=== PATIENT | male | born 1995 | race Caucasian/White ===

== ENCOUNTER 2019-08-01 18:15 | Emergency (ER) | payer OTHER ==
[~2019-08-01] VITALS: Ht 167.7 cm; Wt 90.0 kg
[2019-08-01] MEDS ORDERED: ACETAMINOPHEN 500 MG TAB (TYLENOL) PO ONE (18:45)
--- NOTE | 2019-08-01 19:00 | ED Lower Extremity ---
General Chief Complaint: Lower Extremity Stated Complaint: FEVER,L LEG PAIN Nursing Triage Note: Pt amb to room #9 with c/o L calf discomfort et subjective fever. Pt reports on this day he experienced discomfort to L calf for x1hr. Pt currently denies pain to L calf with no redness, swelling, or heat noted. Pt denies cough or congestion. Pt reports subjective fever stating, "I just have felt cold all day." A&OX4. Nursing Sepsis Screen: No Definite Risk Source: patient Exam Limitations: no limitations History of Present Illness Date Seen by Provider: Aug 01, 2019 Time Seen by Provider: 18:56 Initial Comments To ER with reports of rather sudden onset of fever up to 101 this afternoon about 2-3 hours ago. His only symptom is a mild headache. 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 He denies a cough, he denies shortness of breath, denies diarrhea denies dysuria or any pains. He does report that he's had intermittent achiness to the posterior left that lasts about 15 minutes and comes intermittently, usually goes away when he gets up and walks around. This has been present for about 3 weeks and describes it as a tingly sensation. It starts behind the knee and extends distally down to the foot. No known injury no swelling in his present for several weeks, again, intermittently. Onset: just prior to arrival Severity: moderate Pain/Injury Location: left leg Method of Injury: unknown Allergies and Home Medications Allergies Coded Allergies: No Known Drug Allergies (Unverified , 08/01/19) Patient Home Medication List Home Medication List Reviewed: Yes Review of Systems Constitutional: see HPI; No chills; fever; No malaise, No weakness EENTM: see HPI Respiratory: no symptoms reported; No cough, No short of breath Cardiovascular: no symptoms reported Gastrointestinal: No abdominal pain, No diarrhea, No nausea, No vomiting Genitourinary: no symptoms reported; No dysuria Musculoskeletal: no symptoms reported Skin: no symptoms reported Psychiatric/Neurological: No Symptoms Reported Past Ilbwkeo-Fxilhl-Pqolmo Hx Patient Social History Recent Foreign Travel: No Contact w/Someone Who Travel: No Recent Infectious Disease Expo: No Physical Exam Vital Signs Vital Signs - First Documented 08/01/19 18:32 Temp 38.4 Pulse 114 Resp 17 B/P (MAP) 145/86 (105) Pulse Ox 97 O2 Delivery Room Air Capillary Refill : Less Than 3 Seconds Height, Weight, BMI Height: '" Weight: lbs. oz. kg; 32.00 BMI Method: General Appearance: WD/WN, no apparent distress HEENT: PERRL/EOMI, normal ENT inspection, TMs normal, pharyngeal erythema Neck: non-tender, full range of motion Respiratory: no respiratory distress, no accessory muscle use Hips: bilateral hip non-tender, bilateral hip normal inspection, bilateral hip normal range of motion Legs: bilateral leg non-tender, bilateral leg normal inspection, bilateral leg normal range of motion, bilateral leg other (lites are normal in appearance with strong dorsalis pedis pulses no redness no swelling no ecchymosis or evidence of injury) Knees: bilateral knee non-tender, bilateral knee normal inspection, bilateral knee normal range of motion Feet: bilateral foot non-tender, bilateral foot normal inspection, bilateral foot normal range of motion Neurologic/Psychiatric: alert, normal mood/affect, oriented x 3 Skin: normal color, warm/dry Progress/Results/Core Measures Results/Orders Lab Results Laboratory Tests Test 08/01/19 18:50 Range/Units White Blood Count 9.2 4.3-11.0 10^3/uL Red Blood Count 5.08 4.35-5.85 10^6/uL Hemoglobin 14.5 13.3-17.7 G/DL Hematocrit 42 40-54 % Mean Corpuscular Volume 83 80-99 FL Mean Corpuscular Hemoglobin 29 25-34 PG Mean Corpuscular Hemoglobin Concent 34 32-36 G/DL Red Cell Distribution Width 12.7 10.0-14.5 % Platelet Count 291 130-400 10^3/uL Mean Platelet Volume 9.7 7.4-10.4 FL Neutrophils (%) (Auto) 88 H 42-75 % Lymphocytes (%) (Auto) 10 L 12-44 % Monocytes (%) (Auto) 1 0-12 % Eosinophils (%) (Auto) 1 0-10 % Basophils (%) (Auto) 0 0-10 % Neutrophils # (Auto) 8.1 H 1.8-7.8 X 10^3 Lymphocytes # (Auto) 0.9 L 1.0-4.0 X 10^3 Monocytes # (Auto) 0.1 0.0-1.0 X 10^3 Eosinophils # (Auto) 0.1 0.0-0.3 10^3/uL Basophils # (Auto) 0.0 0.0-0.1 10^3/uL Neutrophils % (Manual) 79 % Lymphocytes % (Manual) 13 % Monocytes % (Manual) 1 % Eosinophils % (Manual) 2 % Band Neutrophils 5 % Blood Morphology Comment NORMAL D-Dimer 0.53 H 0.00-0.49 UG/ML Sodium Level 137 135-145 MMOL/L Potassium Level 3.9 3.6-5.0 MMOL/L Chloride Level 102 98-107 MMOL/L Carbon Dioxide Level 25 21-32 MMOL/L Anion Gap 10 5-14 MMOL/L Blood Urea Nitrogen 13 7-18 MG/DL Creatinine 1.16 0.60-1.30 MG/DL Estimat Glomerular Filtration Rate > 60 BUN/Creatinine Ratio 11 Glucose Level 97 70-105 MG/DL Calcium Level 9.2 8.5-10.1 MG/DL Corrected Calcium 9.0 8.5-10.1 MG/DL Total Bilirubin 0.7 0.1-1.0 MG/DL Aspartate Amino Transf (AST/SGOT) 21 5-34 U/L Alanine Aminotransferase (ALT/SGPT) 22 0-55 U/L Alkaline Phosphatase 81 40-136 U/L C-Reactive Protein High Sensitivity 0.33 0.00-0.50 MG/DL Total Protein 7.4 6.4-8.2 GM/DL Albumin 4.2 3.2-4.5 GM/DL Procalcitonin 0.03 <0.10 NG/ML Monoscreen NEGATIVE NEGATIVE Group A Streptococcus Screen NEGATIVE NEGATIVE Micro Results Microbiology 08/01/19 Influenza Types A,B Antigen (DA) - Final, Complete My Orders Orders - ALVIN JIMENES QUARRY [employer] Cbc With Automated Diff (08/01/19 18:39) Hs C Reactive Protein (08/01/19 18:39) Comprehensive Metabolic Panel (08/01/19 18:39) Rapid Strep A Screen (08/01/19 18:39) Influenza A And B Antigens (08/01/19 18:39) Ed Iv/Invasive Line Start (08/01/19 18:39) Acetaminophen Tablet (Tylenol Tablet) (08/01/19 18:45) Fibrin Degradation Products (08/01/19 18:54) Procalcitonin (Pct) (08/01/19 18:54) Manual Differential (08/01/19 18:50) Monotest (08/01/19 19:16) Ibuprofen Tablet (Motrin Tablet) (08/01/19 20:08) Ibuprofen Tablet (Motrin Tablet) (08/01/19 20:30) Medications Given in ED Current Medications Medications Dose Ordered Sig/Jaskaran Route Start Time Stop Time Status Last Admin Dose Admin Acetaminophen 1,000 mg ONCE ONCE PO 08/01/19 18:45 08/01/19 18:46 DC 08/01/19 18:47 1,000 MG Ibuprofen 800 mg ONCE ONCE PO 08/01/19 20:30 08/01/19 20:24 DC 08/01/19 20:10 800 MG Vital Signs/I&O 08/01/19 08/01/19 08/01/19 08/01/19 18:32 18:47 20:10 20:20 Temp 38.4 38.4 39.2 39.2 Pulse 114 110 Resp 17 18 B/P (MAP) 145/86 (105) 126/64 (105) Pulse Ox 97 96 O2 Delivery Room Air Room Air Blood Pressure Mean: 105 Departure Communication (Admissions) His d-dimer is minimally elevated, his left leg is normal in appearance without swelling redness or tenderness to palpation and currently he has no pain in his left leg. 2020-temperature up to 102.8, still no leg pain. D-dimer is minimally elevated. I discussed this with him--he is a nonsmoker, his risk for DVT is low, appearance of his leg is normal I do not think this is DVT but he does have a history of leg pain with an elevated d-dimer so an ultrasound is warranted. We do not have this available after hours or on the weekends. Discussed with him if he develops worsening redness pain or other concerns he should go to a [facility] where ultrasound is available. He agrees with this plan. Otherwise he'll follow-up with [facility] next week. I discussed with him the need to quarantine at home until he's been fever free without Tylenol or Motrin 72 hours or 14 days whichever is sooner. He agrees with this plan. Because he is low risk and without any respiratory symptoms and in no distress I will not swab him for COVID-19. Impression Primary Impression: Viral syndrome Disposition: 01 HOME, SELF-CARE Condition: Stable Departure-Patient Inst. Decision time for Depature: 19:39 Referrals: [facility] (PCP) Primary Care Physician NO,LOCAL PHYSICIAN (Family) Primary Care Physician Patient Instructions: Viral Syndrome (DC) Add. Discharge Instructions: 1. Tylenol for fevers. Return to ER for any concerns. Follow-up with your doctor next week. Continue to stay at home quarantine until you have been symptom free for 72 hours with no use of Tylenol or Motrin or 14 days which every sooner. Follow-up with your doctor next week in regards to the leg pain. All discharge instructions reviewed with patient and/or family. Voiced understanding. ALVIN JIMENES APRN Aug 01, 2019 19:00
[2019-08-01 19:02] LABS: BASOPHILS % (AUTO) 0 % (0-10); EOSINOPHILS # (AUTO) 0.1 10^3/uL (0.0-0.3); EOSINOPHILS % (AUTO) 1 % (0-10); HEMATOCRIT 42 % (40-54); HEMOGLOBIN 14.5 G/DL (13.3-17.7); LYMPHOCYTES # (AUTO) 0.9 X 10^3 (1.0-4.0); LYMPHOCYTES % (AUTO) 10 % (12-44); MEAN CORPUSCULAR HEMOGLOBIN 29 PG (25-34); MEAN CORPUSCULAR HGB CONC 34 G/DL (32-36); MEAN CORPUSCULAR VOLUME 83 FL (80-99); MEAN PLATELET VOLUME 9.7 FL (7.4-10.4); MONOCYTES # (AUTO) 0.1 X 10^3 (0.0-1.0); MONOCYTES % (AUTO) 1 % (0-12); NEUTROPHILS # (AUTO) 8.1 X 10^3 (1.8-7.8); NEUTROPHILS % (AUTO) 88 % (42-75); PLATELET COUNT 291 10^3/uL (130-400); RED CELL DISTRIBUTION WIDTH 12.7 % (10.0-14.5); WHITE BLOOD COUNT 9.2 10^3/uL (4.3-11.0)
[2019-08-01 19:20] LABS: ALANINE AMINOTRANSFERASE 22 U/L (0-55); ALBUMIN 4.2 GM/DL (3.2-4.5); ALKALINE PHOSPHATASE 81 U/L (40-136); BILIRUBIN,TOTAL 0.7 MG/DL (0.1-1.0); BUN/CREATININE RATIO 11; CALCIUM 9.2 MG/DL (8.5-10.1); CARBON DIOXIDE 25 MMOL/L (21-32); CHLORIDE 102 MMOL/L (98-107); CREATININE SERUM 1.16 MG/DL (0.60-1.30); GFR ESTIMATED > 60; GLUCOSE 97 MG/DL (70-105); POTASSIUM 3.9 MMOL/L (3.6-5.0); SODIUM 137 MMOL/L (135-145); TOTAL PROTEIN 7.4 GM/DL (6.4-8.2)
[2019-08-01 19:48] LABS: BAND NEUTROPHILS 5 %; NEUTROPHILS % (MANUAL) 79 %
[2019-08-01 19:49] LABS: EOSINOPHILS % (MANUAL) 2 %; LYMPHOCYTES % (MANUAL) 13 %; MONOCYTES % (MANUAL) 1 %; RBC MORPH NORMAL
[2019-08-01] MEDS ORDERED: IBUPROFEN 800 MG (MOTRIN) TAB PO ONE ×2 (20:08→20:30)
[2019-08-01 20:20] VITALS: BP 126/64
== END 2019-08-01 20:20 | disposition home or self-care (01) ==
LOC: ER 18:18
DX: B34.9 Viral infection, unspecified (principal); M79.662 Pain in left lower leg
CPT/HCPCS: 36415; 80053; 84145; 85007; 85027; 85379; 86141; 86308; 87430; 87804

== ENCOUNTER 2019-09-11 10:02 | Emergency (ER) | payer OTHER ==
[~2019-09-11] VITALS: Ht 167.7 cm; Wt 91.6 kg
--- OUTSIDE RECORDS SUMMARY | 2019-09-11 10:29 | XMS REPORT | Continuity of Care Document ---
Demographics Preferred Language Unknown Marital Status Unknown Pentecostalism Affiliation Unknown Race Unknown Ethnic Group Unknown Author Organization Unknown Address Unknown Phone Unavailable Allergies Active Description Code Type Severity Reaction Onset Reported/Identified Relationship to Patient Clinical Status Yes No Known Drug Allergies [id number] Drug Allergy Unknown N/A 08/01/2019 Medications There is no data. Problems Date Dx Coded Attending Type Code Diagnosis Diagnosed By 08/01/2019 Ot B34.9 MELISSA L INFECTION, UNSPECIFIED 08/01/2019 Ot M79.662 PA IN IN LEFT LOWER LEG 08/01/2019 Ot R50.9 FEVE R, UNSPECIFIED 08/05/2019 Ot B34.9 MELISSA L INFECTION, UNSPECIFIED 08/05/2019 Ot M79.662 PA IN IN LEFT LOWER LEG 08/05/2019 Ot R50.9 FEVE R, UNSPECIFIED Procedures There is no data. Results Test Result Range Bacterial throat culture - 08/01/19 18:5 0 Bacterial throat culture NBS NRG Encounters ACCT No. Visit Date/Time Discharge Status Pt. Type Provider Facility Loc./Unit Complaint [id number] 08/02/2019 16:20:00 Document Registration
--- NOTE | 2019-09-11 10:43 | ED GI ---
General Chief Complaint: Rect Problems Stated Complaint: BLOOD IN STOOL Nursing Triage Note: AMB TO ROOM WITH C/O RECTAL BLEEDING FOR THE LAST 4-5 YEARS AFTER BM DOES HAVE TROUBLE WITH CONSTIPATION. SAW [facility] 2 MONTHS AGO RECOMMEND TO TAKE FIBER DAILY. HAS NOT BEEN DOING THAT. TODAY CONCERN HAD HARD STOOL THOUGHT HE WAS HAVING MORE BLEEDING. ALSO PAIN IN RECTAL AREA Sepsis Screen: No Definite Risk Source of Information: Patient Exam Limitations: No Limitations History of Present Illness Date Seen by Provider: September 11, 2019 Time Seen by Provider: 10:25 Initial Comments Here with report of rectal bleeding intermittently over the last several years but worse today. Has had difficulty with bowel movements for he will get constipated. He will typically take a laxative and that will help but sometimes gets a tear and has some bleeding when he does that. This occurred today. He states the bleeding was a little bit more than typical although has stopped now. He was worried that maybe he had to significant of a tear. Does have a little bit of pain. States that she did have a bowel movement although feels like he still has more to go. This is not uncommon for him. He has not been seen by a surgeon. He was seen by his doctor 2 months ago and instructed to start on fiber. He admits that he has not been very regular with that over the past couple of weeks and also states that he doesn't drink enough water. Denies fever or chills. Denies nausea or vomiting. Denies abdominal pain. Timing/Duration: 1-2 Days, Getting Worse, Intermittent Severity/Quality: Moderate, Aching, Cramping Location: Other (rectal) Associated Symptoms: No Fever/Chills, No Nausea/Vomiting, No Swelling/Mass in Abdomen Allergies and Home Medications Allergies Coded Allergies: No Known Drug Allergies (Unverified , 08/01/19) Patient Home Medication List Home Medication List Reviewed: Yes Review of Systems Review of Systems Constitutional: see HPI; No chills, No fever Respiratory: No Symptoms Reported Cardiovascular: No Symptoms Reported Gastrointestinal: See HPI, Constipated, Rectal Bleeding; Denies Vomiting Skin: no symptoms reported Psychiatric/Neurological: No Symptoms Reported Past Mszoqdo-Vwsabq-Cdblmf Hx Past Med/Social Hx: Reviewed Nursing Past Med/Soc Hx Patient Social History Alcohol Use: Denies Use Recreational Drug Use: No Smoking Status: Never a Smoker 2nd Hand Smoke Exposure: No Recent Foreign Travel: No Contact w/Someone Who Travel: No Recent Infectious Disease Expo: No Recent Hopitalizations: No Seasonal Allergies Seasonal Allergies: No Past Medical History Surgeries: No Respiratory: No Cardiac: No Neurological: No Genitourinary: No Gastrointestinal: No Musculoskeletal: No Endocrine: No HEENT: No Cancer: No Psychosocial: No Integumentary: No Blood Disorders: No Family Medical History Reviewed Nursing Family Hx No Pertinent Family Hx Physical Exam Vital Signs Vital Signs - First Documented 09/11/19 10:05 Temp 36.8 Pulse 95 Resp 18 B/P (MAP) 149/82 (104) Pulse Ox 98 O2 Delivery Room Air Capillary Refill : Less Than 3 Seconds Height/Weight/BMI Height: '" Weight: lbs. oz. kg; 32.00 BMI Method: General Appearance: WD/WN, mild distress Respiratory: lungs clear, normal breath sounds Cardiovascular: regular rate, rhythm, no murmur Rectal: normal rectal tone, heme positive stool, tenderness, other (no significant gross blood. Soft stool ball noted. Heme positive test but I believe it is from surrounding stool and not stool itself. No mass noted.) Neurologic/Psychiatric: alert, oriented x 3 Skin: normal color, warm/dry Progress/Results/Core Measures Results/Orders My Orders Orders - DANIEL GAUTHIER MD Fecal Occult Bedside (09/11/19 10:40) Vital Signs/I&O 09/11/19 10:05 Temp 36.8 Pulse 95 Resp 18 B/P (MAP) 149/82 (104) Pulse Ox 98 O2 Delivery Room Air Blood Pressure Mean: 104 Progress Progress Note : Progress Note Seen and evaluated. Rectal exam performed and fecal occult blood sample obtained. I did discuss with the patient a variety of options and he would like to try to pass the stool at home using suppository and then will continue MiraLAX afterwards. I did discuss the case with Dr. Tello regarding follow-up appointment. He can see the patient today at 3 PM at his office. I will send a copy of the chart over to him. We did not do labs or further evaluation currently as patient is otherwise stable and doing okay. Discharged home with return precautions. Patient verbalize understanding instructions and agreement with plan. Departure Impression Primary Impression: Constipation Qualified Codes: K59.00 - Constipation, unspecified Additional Impression: Rectal fissure Disposition: HOME, SELF-CARE Condition: Improved Departure-Patient Inst. Decision time for Depature: 10:54 Referrals: [facility] (PCP) Primary Care Physician NO,LOCAL PHYSICIAN (Family) Primary Care Physician MARTHA TELLO DO Patient Instructions: Anal Fissure (DC), Constipation, Adult (DC) Add. Discharge Instructions: All discharge instructions reviewed with patient and/or family. Voiced understanding. Drink plenty of fluids. You should initiate MiraLAX or the generic one capful twice daily for the next 3 days and then one half capful twice daily thereafter to keep stools soft. You may increase or decrease the dose to keep stools in normal range. You may use sitz bath to cleaning after bowel movements or clean with shower sprayer or similar. Follow-up with Dr. Tello today at 3 PM at his office. You will fill out paperwork first and then you will see him. Return for worse pain, fever, bleeding, weakness, bowel movement problems or other concerns as needed. Copy Copies To 1: MARTHA TELLO TIMOTHY D MD September 11, 2019 10:43
[2019-09-11 11:03] VITALS: BP 149/82
== END 2019-09-11 11:03 | disposition home or self-care (01) ==
LOC: EDUNIT# 10:02 → ER 10:03
DX: K60.2 Anal fissure, unspecified (principal); K59.00 Constipation, unspecified
CPT/HCPCS: 82274

== ENCOUNTER 2019-09-16 05:50 | Outpatient (RCR) | payer OTHER | END 2019-12-15 | LOC: PREOP 05:50 → EDSTATUS 10:15 | PROVIDERS: ATTEND Surgery | DX: Z01.818 Encounter for other preprocedural examination (principal) ==